=== PATIENT | male | born 1995 | race Caucasian/White ===

== ENCOUNTER 2021-03-09 19:28 | Emergency (ER) | payer OTHER ==
[~2021-03-09] VITALS: Ht 154.9 cm; Wt 126.1 kg
[2021-03-09 19:43] VITALS: BP_SYST 138
[2021-03-09] MEDS ORDERED: LIDOCAINE 1% 10 MG/ML, 20 ML MDV INJ ONE (21:45)
[2021-03-09] MEDS ORDERED: DIPH-TET-PERTUS Vaccine 0.5 ML VIAL (ADACEL) I.M. ONE (21:45)
[2021-03-09] MEDS ORDERED: BACITRACIN ZINC 15 GM TOPICAL OINTMENT TP ONE (22:30)
[2021-03-09 22:40] VITALS: BP_SYST 138
== END 2021-03-09 22:40 | disposition home or self-care (01) ==
LOC: SED 19:28
DX: S61.211A Laceration without foreign body of left index finger without damage to nail, initial encounter (principal); W45.8XXA Other foreign body or object entering through skin, initial encounter; Y93.89 Activity, other specified; Y92.89 Other specified places as the place of occurrence of the external cause; Y99.0 Civilian activity done for income or pay
CPT/HCPCS: 12001; 90471; 90715; 99283; J2001

== ENCOUNTER 2021-03-19 10:20 | Emergency (ER) | payer OTHER ==
[~2021-03-19] VITALS: Ht 154.9 cm; Wt 126.1 kg
[2021-03-19 10:27] VITALS: BP_SYST 132
--- NOTE | 2021-03-19 10:27 | NUR ---
Patient to ER bed 8 to gown for evaluation. Side rails up.
--- NOTE | 2021-03-19 10:28 | NUR ---
Pt came into ER for suture removal of left second finger. Skin is intact edges approxiated. No signs of infection, no redness and no drainage. Pt denies pain.
--- NOTE | 2021-03-19 10:30 | NUR ---
ER at bedside examining patient.
[2021-03-19 10:47] VITALS: BP_SYST 132
--- NOTE | 2021-03-19 10:47 | NUR ---
Patient given written and verbal discharge instructions and verbalizes understanding. ER MD discussed with patient the results and treatment provided. Patient in stable condition. ID arm band removed. Patient educated on pain management and to follow up with PMD. Pain Scale 0/10. Opportunity for questions provided and answered. Medication side effect fact sheet provided.
== END 2021-03-19 10:47 | disposition home or self-care (01) ==
LOC: SED 10:20
DX: S61.210D Laceration without foreign body of right index finger without damage to nail, subsequent encounter (principal); Z48.02 Encounter for removal of sutures; W45.8XXD Other foreign body or object entering through skin, subsequent encounter
CPT/HCPCS: 99281